=== PATIENT | male | born 1950 | race American Indian/Alaskan Native ===

== ENCOUNTER 2017-02-18 19:46 | Emergency (ER) | payer OTHER ==
[2017-02-18 19:49] VITALS: BMI 25.4
[2017-02-18 19:54] VITALS: BP 191/98
--- NOTE | 2017-02-18 20:19 | ED PDOC ---
Arrival/HPI - General Chief Complaint: Back Pain Time Seen by Provider: 02/18/17 19:54 Historian: Patient - History of Present Illness Narrative History of Present Illness (Text): 02/18/17 20:16 This 66 yo male presents to this ED c/o neck stiffness since this morning while carrying a back pack. Denies fever, sob, cp, trauma, heavy lifting, weakness, paresthesias, GI/ incontinence, saddle anesthesia, dizziness, or abnormal gait. Denies other complains. Time/Duration: Other (since this morning) Quality: Aching Context: Home Past Medical History - Provider Review Nursing Documentation Reviewed: Yes - Infectious Disease Hx of Infectious Diseases: None - Cardiac Hx Cardiac Disorders: No - Pulmonary Hx Respiratory Disorders: No - Neurological Hx Neurological Disorder: No - HEENT Hx HEENT Disorder: Yes Other/Comment: glasses - Renal Hx Renal Disorder: No - Endocrine/Metabolic Hx Endocrine Disorders: Yes Hx Diabetes Mellitus Type 2: Yes - Hematological/Oncological Hx Blood Disorders: No - Integumentary Hx Dermatological Disorder: No - Musculoskeletal/Rheumatological Hx Musculoskeletal Disorders: No - Gastrointestinal Hx Gastrointestinal Disorders: No - Genitourinary/Gynecological Hx Genitourinary Disorders: No - Psychiatric Hx Psychophysiologic Disorder: No Hx Substance Use: No - Anesthesia Hx Anesthesia: No Family/Social History - Physician Review Nursing Documentation Reviewed: Yes Family/Social History: No Known Family HX Smoking Status: Never Smoked Hx Alcohol Use: Yes Frequency of alcohol use: Socially Hx Substance Use: No Allergies/Home Meds Allergies/Adverse Reactions: Allergies No Known Allergies Allergy (Verified 02/18/17 19:51) Home Medications: Home Meds Medication Instructions Recorded Confirmed Glimepiride [amaRYL] 2 mg PO DAILY 02/18/17 02/18/17 Losartan [Cozaar] 25 mg PO DAILY 02/18/17 02/18/17 MetFORMIN [glucoPHAGE] 1,000 mg PO HS 02/18/17 02/18/17 Review of Systems - Review of Systems Constitutional: Normal. absent: Fatigue, Weight Change, Fevers Eyes: Normal. absent: Vision Changes ENT: Normal Respiratory: Normal. absent: SOB, Cough Cardiovascular: Normal. absent: Chest Pain, Palpitations Gastrointestinal: Normal. absent: Abdominal Pain, Nausea, Vomiting Genitourinary Male: Normal. absent: Dysuria, Frequency Musculoskeletal: Neck Pain (and stiffness) Skin: Normal. absent: Rash Neurological: Normal. absent: Headache, Dizziness Endocrine: Normal Hemo/Lymphatic: Normal Psychiatric: Normal Physical Exam Vital Signs Temp Pulse Resp BP Pulse Ox 02/18/17 23:08 16 98 02/18/17 23:00 98.0 F 80 16 98 02/18/17 19:52 98.1 F 83 19 191/98 H 97 Temperature: Afebrile Blood Pressure: Normal Pulse: Regular Respiratory Rate: Normal Appearance: Positive for: Well-Appearing, Non-Toxic, Comfortable Pain Distress: None Mental Status: Positive for: Alert and Oriented X 3 - Systems Exam Head: Present: Atraumatic, Normocephalic Pupils: Present: PERRL Extroacular Muscles: Present: EOMI Conjunctiva: Present: Normal Mouth: Present: Moist Mucous Membranes Pharnyx: Present: Normal. No: ERYTHEMA, EXUDATE, TONSILS ENLARGED Nose (External): Present: Atraumatic Nose (Internal): Present: Normal Inspection Neck: Present: Trachea Midline. No: MIDLINE TENDERNESS, Paraspinal Tenderness, Lymphadenopathy Respiratory/Chest: Present: Clear to Auscultation, Good Air Exchange. No: Respiratory Distress, Accessory Muscle Use Cardiovascular: Present: Regular Rate and Rhythm, Normal S1, S2. No: Murmurs Abdomen: Present: Normal Bowel Sounds. No: Tenderness, Distention, Peritoneal Signs Back: Present: Normal Inspection Upper Extremity: Present: Normal Inspection. No: Cyanosis, Edema Lower Extremity: Present: Normal Inspection. No: Edema Neurological: Present: GCS=15, CN II-XII Intact, Speech Normal Skin: Present: Warm, Dry, Normal Color. No: Rashes Psychiatric: Present: Alert, Oriented x 3, Normal Insight, Normal Concentration Medical Decision Making ED Course and Treatment: 02/18/17 22:39 Re-evaluation. Patient feels better. Discussed results and plan with patient who expresses understanding. All questions answered and there is agreement with the plan to discharge home with instructions. Patient stable for discharge. Return if symptoms persist or worsen Patient was recommended to see neurologist and neuro surgeon within 2-3 days. Return to emergency if symptoms worsen. Re-evaluation Time: 22:39 Reassessment Condition: Re-examined, Improved - RAD Interpretation Narrative RAD Interpretations (Text): 02/18/17 22:37 [facility] FINDINGS: Vertebrae: There is approximately 3 mm of retrolisthesis of C5 on C6 in extension which does not change significantly with flexion. Disc spaces: Degenerative facet arthropathy throughout the cervical spine. Degenerative disc disease lower cervical spine. Soft tissues: Unremarkable. IMPRESSION: 1. There is approximately 3 mm of retrolisthesis of C5 on C6 in extension which does not change significantly with flexion. No definite instability. 2. Degenerative changes as described. Thank you for allowing us to participate in the care of your patient. Dictated and Authenticated by: Kulwant Guerra MD 02/18/2017 10:24 PM Eastern Time ([place] & [place]) 02/18/17 22:38 [facility] FINDINGS: Vertebrae: Grade 1 retrolisthesis of C5 on C6 appears to be on a degenerative basis. Discs/spinal canal/neural foramina: Degenerative disc disease lower cervical spine. Degenerative facet arthropathy throughout the cervical spine. Soft tissues: Unremarkable. Sinuses: Mucosal thickening in the inferior maxillary sinuses. Polyp or mucous retention cyst on the left. Lung apices: Unremarkable as visualized. IMPRESSION: 1. Degenerative changes as described. 2. Grade 1 retrolisthesis of C5 on C6 appears to be on a degenerative basis. Thank you for allowing us to participate in the care of your patient. Dictated and Authenticated by: Kulwant Guerra MD 02/18/2017 10:31 PM Eastern Time ([place] & [place] Radiology Orders: 02/18/17 20:17 CERVICAL SPINE >18YR W/OBLIQUE [RAD] Stat 02/18/17 21:20 CERVICAL SPINE COMP W/ F&E [RAD] Stat 02/18/17 21:21 CERVICAL SPINE W/O CONTRAST [CT] Stat - Medication Orders Current Medication Orders: Discontinued Medications Diazepam (Valium) 5 mg PO ONCE ONE PRN Reason: Protocol Stop: 02/18/17 20:18 Last Admin: 02/18/17 20:36 Dose: 5 mg Ketorolac Tromethamine (Toradol) 15 mg IM STAT STA Stop: 02/18/17 20:18 Last Admin: 02/18/17 20:36 Dose: 15 mg Disposition/Present on Arrival - Present on Arrival Any Indicators Present on Arrival: No History of DVT/PE: No History of Uncontrolled Diabetes: No Urinary Catheter: No History of Decub. Ulcer: No History Surgical Site Infection Following: None - Disposition Have Diagnosis and Disposition been Completed?: Yes Diagnosis: Retrolisthesis of vertebrae, Neck stiffness, Neck pain Disposition: HOME/ ROUTINE Disposition Time: 22:41 Patient Plan: Discharge Condition: GOOD Discharge Instructions (ExitCare): Soft Cervical Collar (ED) Additional Instructions: Call private doctor for follow up visit in 1-2 days. Take medication as instructed. Return to emergency if pain worsen. Call Neuro surgeon and neurology doctor for revaluation. Prescriptions: diaZEpam [Valium] 5 mg PO DAILY #7 tab Famotidine [Pepcid] 40 mg PO DAILY #10 tablet Naproxen 500 mg PO BID #10 tab Referrals: Vivek Chapin MD [Staff Provider] - Follow up with primary King Chris MD [Staff Provider] - Follow up with primary Forms: [facility] (Indonesian), WORK NOTE
[2017-02-18 23:01] VITALS: PULSE 80; RESP 16; TEMP 98; O2SAT 98
--- NOTE | 2017-02-19 08:07 | RAD ---
PROCEDURE: Cervical Spine Radiographs. HISTORY: Pain. COMPARISON: None. FINDINGS: BONES: Cervical spine straightening of the upper cervical spine. There is a marked anterior degenerative like wedging with prominent anterior inferior spondylotic ridging of C5. 5 6 and C6-7 disc spaces are markedly narrowed. No fracture line is noted. There is overall a amorphous increased density here on other views the C5 vertebral body is posterior to C6 and the posterior spinal laminal line is posterior to C6 as well. Heart is consistent with this. Consider more sensitive evaluation with CT of the cervical spine with multiplanar imaging. Dens Intact. DISC SPACES: Narrowed as above SOFT TISSUES: Normal. No prevertebral soft tissue swelling. OTHER FINDINGS: None. IMPRESSION: Prominent C5 faecal spondylosis. Prominent C5-6 and C6-7 disc space narrowing. Retrolisthesis of C5 relative to C6. There is some apophyseal joint arthrosis noted at multiple cervical levels. To better assess the posterior elements an air integrity, consider CT of the cervical spine with multiplanar sagittal coronal reformations. No history of trauma provided. Some of this malalignment can be seen with degenerative ligamentous laxity. Multilevel cervical apophyseal joint arthrosis with multiple bilateral foraminal compromises.
--- NOTE | 2017-02-19 09:03 | RAD ---
PROCEDURE: Cervical spine with flexion extension HISTORY: pain COMPARISON: TECHNIQUE: Lateral flexion-extension views only were obtained. FINDINGS: There is disc degeneration at C5-6 and C6-7. There is a posterior osteophyte arising from C5. There is no subluxation with flexion or extension IMPRESSION: Severe disc degeneration C5-6 and C6-7
--- NOTE | 2017-02-19 10:15 | CT ---
PROCEDURE: CT Cervical Spine without contrast HISTORY: Neck pain COMPARISON: None available. TECHNIQUE: Axial computed tomography images were obtained of the cervical spine without the use of intravenous contrast. Coronal and sagittal reformatted images were created and reviewed. Radiation dose: Total exam DLP = 513 mGy-cm. This CT exam was performed using one or more of the following dose reduction techniques: Automated exposure control, adjustment of the mA and/or kV according to patient size, and/or use of iterative reconstruction technique. FINDINGS: VERTEBRAE: No fracture. Normal alignment. No destructive bony lesion. DISCS/SPINAL CANAL/NEURAL FORAMINA: Severe bilateral foraminal stenosis at C5-6 on the left side at C6-7. There is severe disc degeneration and mild retrolisthesis at C5-6. There is bony sclerosis in the vertebral endplates. There is also severe. Disc degeneration with bony sclerosis at C6-7. Facet arthropathy on the left at C3-4 and on the right at C4-5. PARASPINAL SOFT TISSUES: Unremarkable. OTHER FINDINGS: None. IMPRESSION: Multilevel disc and facet degeneration most severe at C5-6 and C6-7
== END 2017-02-18 23:08 | disposition home or self-care (01) ==
LOC: ED 19:46
DX: M50.222 Other cervical disc displacement at C5-C6 level (principal); M43.6 Torticollis
CPT/HCPCS: 72050; 72052; 72125; 96372; 99282; J1885